=== PATIENT | male | born 1980 | race African-American/Black ===

== ENCOUNTER 2019-01-25 11:03 | Emergency (ER) | payer OTHER ==
[2019-01-25] MEDS ORDERED: predniSONE 20 MG TABLET PO STA (13:42)
[2019-01-25] MEDS ORDERED: GABAPENTIN 100 MG CAPSULE PO STA (13:42)
--- NOTE | 2019-01-25 13:46 | ED Physician Documentation ---
PD HPI BACK PAIN - Stated complaint Stated Complaint: L BACK PX - Chief complaint Chief Complaint: Back Pain - History obtained from History obtained from: Patient, Family - History of Present Illness Timing - onset: How many days ago (2), Chronic (pt has a hx of chronic intermittent low back pain) Timing - duration: Days (2) Timing - details: Gradual onset Severity Comments: moderate Location: Lower, Left Quality: Pain, Spasm Associated symptoms: Other (denies numbness, weakness, fever, hematuria, incontinence or pain with urination) Improves with: Nothing Worsened by: Movement Contributing factors: Other (hx of chronic back pain) Similar symptoms before: Diagnosis (hx of chronic pain and radiculopathy) Recently seen: Not recently seen - Treatment prior to arrival Treatment prior to arrival: pt takes flexerill, nsaids, gabapentin. Review of Systems Ten Systems: 10 systems reviewed and negative Constitutional: reports: Reviewed and negative Cardiac: reports: Reviewed and negative Respiratory: reports: Reviewed and negative GI: reports: Reviewed and negative : reports: Reviewed and negative Skin: reports: Reviewed and negative Musculoskeletal: reports: Back pain Neurologic: reports: Reviewed and negative Immunocompromised: reports: Reviewed and negative PD PAST MEDICAL HISTORY - Past Medical History Past Medical History: Yes Musculoskeletal: Chronic back pain - Past Surgical History Past Surgical History: Yes General: Appendectomy, Hiatal hernia repair - Present Medications Home Medications: Ambulatory Orders Medication Instructions Recorded Confirmed Gabapentin 300 mg PO TID PRN #30 capsule 01/25/19 predniSONE [Prednisone] 40 mg PO DAILY #10 tablet 01/25/19 - Allergies Allergies/Adverse Reactions: Allergies Allergy/AdvReac Type Severity Reaction Status Date / Time No Known Drug Allergies Allergy Verified 01/25/19 11:26 - Social History Does the pt smoke?: No Smoking Status: Never smoker Does the pt drink ETOH?: Yes Does the pt have substance abuse?: No - Immunizations Immunizations are current?: Yes - POLST Patient has POLST: No PD ED PE NORMAL - Vitals Vital signs reviewed: Yes - General General: Alert and oriented X 3, No acute distress, Well developed/nourished - HEENT HEENT: Atraumatic, Moist mucous membranes - Neck Neck: Supple, no meningeal sign - Cardiac Cardiac: RRR - Respiratory Respiratory: No respiratory distress - Abdomen Abdomen: Soft, Non tender, Non distended - Male Male : Deferred - Rectal Rectal: Deferred - Back Back: No CVA TTP, No spinal TTP - Derm Derm: Normal color, Warm and dry, No rash - Extremities Extremities: No deformity, No edema - Neuro Neuro: Alert and oriented X 3, No motor deficit, No sensory deficit Eye Opening: Spontaneous Motor: Obeys Commands Verbal: Oriented GCS Score: 15 - Psych Psych: Normal mood, Normal affect Results - Vitals Vitals: Oxygen O2 Source Room air PD MEDICAL DECISION MAKING - ED course Complexity details: re-evaluated patient, considered differential, d/w patient, d/w family ED course: ddx- chronic back pain, sciatica, disk hernitation, diskitis, spinal epidural abscess, back strain, muscle strain or spasm 38 y/o M with worsenin of his chronic back pain, pt with no red flags for back pain. Well appearing, no fever. Has no midline tenderness. Pt has a normal neuro examination. Normal gait. Likely strain and radiculopathy Pt is stable for continued supportive care as outpt. I advised him to try increasing his gabapentin since he is currently taking a very low dose. He is stable for discharge with return precautions if worsening. Departure - Departure Disposition: Home, Self Care Clinical Impression: Chronic back pain Qualifiers: Back pain location: low back pain Back pain laterality: left Sciatica presence: unspecified whether sciatica present Qualified Code(s): M54.5 - Low back pain Low back pain Qualifiers: Chronicity: chronic Back pain laterality: left Sciatica presence: unspecified whether sciatica present Qualified Code(s): M54.5 - Low back pain Condition: Stable Record reviewed to determine appropriate education?: Yes Instructions: ED Chronic Pain Management Follow-Up: Matt Ugarte MD [Primary Care Provider] - Prescriptions: Gabapentin 300 mg PO TID PRN #30 capsule PRN Reason: Pain predniSONE [Prednisone] 40 mg PO DAILY #10 tablet Comments: Your exam is consistent with musculoskeletal back pain and a possibly worsened radiculopathy. You can increase your gabapentin to 300mg three times a day. Continue lidoderm patches. Try the prescribed steroid for 5 days (starting tomorrow) first dose was given in the ED. Follow up with your PCP for further management of your back pain. Discharge Date/Time: 01/25/19 13:56
[2019-01-25 13:57] VITALS: BP 136/88
== END 2019-01-25 13:56 | disposition home or self-care (01) ==
LOC: ED 11:03
DX: M54.5 Low back pain (principal); G89.29 Other chronic pain
CPT/HCPCS: 99282; 99284; A9270; J7512

== ENCOUNTER 2019-10-28 16:50 | Outpatient (CLI) | payer OTHER ==
--- NOTE | 2019-10-28 22:59 | Ultrasound Report ---
PROCEDURE: Testicle INDICATIONS: TESTICULAR PAIN TECHNIQUE: Real-time scanning was performed of the scrotum and testicles, with image documentation. Color and p ulse Doppler interrogation was performed of both testicles. COMPARISON: None. FINDINGS: Right: Testicle is normal in size at 3.3 x 1.7 x 2.7 cm, and homogenous in echotexture. Numerous pun ctate calcifications. Epididymis is normal in overall size and morphology. No hydrocele Overlying scrotal skin is normal in thickness. Moderate-sized varicocele. Left: Testicle is normal in size at 3.0 x 1.6 x 2.3 cm, and homogeneous in echotexture. Numerous pun ctate calcifications. Epididymis is normal in overall size and morphology. No hydrocele . Overlying scrotal skin is normal in thickness. Moderate size varicocele. Doppler: Color and pulse Doppler demonstrate normal and symmetric arterial flow in both testicles. IMPRESSION: 1. Bilateral varicoceles. 2. Bilateral testicular microlithiasis. No focal testicular mass. Reviewed by: Luna Rm MD on 10/28/2019 10:57 PM PDT Approved by: Luna Rm MD on 10/28/2019 10:57 PM PDT Station ID: [id number]
== END 2019-10-28 16:51 | disposition home or self-care (01) ==
LOC: DI 16:50
PROVIDERS: ATTEND Urology
DX: I86.1 Scrotal varices (principal); N50.89 Other specified disorders of the male genital organs
CPT/HCPCS: 76870